=== PATIENT | female | born 1950 | race Caucasian/White ===

== ENCOUNTER 2016-11-01 10:38 | Observation (INO) | payer OTHER ==
--- NOTE | ~2016-11-01 | MR18 ---
[facility] A Service of [facility] & [facility] RADIOLOGY TEXT RESULTS PATIENT: SULAIMAN CAST LOCATION: [facility] 341-01 : 51 UNIT #: [id number] AGE: [address]: Devonte Chicas MD SEX: F ORDER DR: [id number] [facility] [address] [place], [place] [address] [id number] I MR#: [id number] #: [id number] NAME: SULAIMAN CAST. : 1950 SEX: F STUDY DATE/TIME: 11/01/2016 17:58 [facility] ROOM: [facility] STUDY DESCRIPTION: MR Brain Wo Contrast Attending Physician: Diana Quan M.D. Ordering Physician: Diana Quan M.D. Primary Care Physician: Dev Parker M.D. MRI CENTER REPORT This report is preliminary unless electronic signature is present. EXAM MRI of the brain without contrast. DATE OF EXAM Performed on 11/01/2016. CLINICAL HISTORY 66-year-old female with dizziness, and loss of balance, but no known injury. Patient has history of ovarian cancer. TECHNIQUE Sagittal and axial T1, axial T2, axial FLAIR, axial diffusion, axial gradient echo images were obtained through the region of the brain. FINDINGS There is no shift of the midline structures, mass effect or restricted diffusion present within the brain parenchyma. No hemorrhage or blood products is appreciated. No edema is seen. There are minimal foci of increased signal in the periventricular white matter. This is felt to be some chronic small vessel ischemic change. Midline structures are intact and no pituitary or pineal lesions are present. Paranasal sinuses and mastoid air cells are clear except in the posterior left ethmoid location where there is some opacification. This may represent sinusitis. No orbital lesions are seen. The vascular flow voids appear within normal limits. IMPRESSION 1. Sinusitis with no evidence of an acute infarct or restricted diffusion. 2. Minimal chronic ischemic change in the periventricular white matter. 3. No evidence of hemorrhage or mass effect. [facility] A Service of [facility] & [facility] RADIOLOGY TEXT RESULTS PATIENT: SULAIMAN CAST LOCATION: [facility] 341-01 : [birth year] UNIT #: [id number] AGE: [address]: Devonte Chicas MD SEX: F ORDER DR: Dictated by... Esa Craig M.D. THIS IS AN ELECTRONICALLY VERIFIED REPORT Esa Craig M.D. at 11/02/2016 5:42 PM MADHU/abby TD: 11/01/2016 23:07 JOB #: [id number] MRI CENTER REPORT COPY
--- NOTE | ~2016-11-01 | CT17 ---
[facility] A Service of [facility] & [facility] RADIOLOGY TEXT RESULTS PATIENT: SULAIMAN CAST LOCATION: [facility] 341-01 : 51 UNIT #: [id number] AGE: [address]: Diana Quan MD SEX: F ORDER DR: [id number] [facility] [address] [place], [place] [address] [id number] I MR#: [id number] Acc #: [id number] NAME: SULAIMAN CAST. : 1950 SEX: F STUDY DATE/TIME: 11/01/2016 13:43 UNIT: [address] ROOM: [facility] STUDY DESCRIPTION: CT Angio Head Attending Physician: Diana Quan M.D. Ordering Physician: Barb Blanchard M.D. Primary Care Physician: Dev Parker M.D. MEDICAL IMAGING REPORT This report is preliminary unless electronic signature is present EXAM CT angiogram of the head and neck vessels, 11/01/2016. HISTORY Dizziness with head movement, severe nausea starting at 08:05 today. Remote history of ovarian cancer. No trauma. COMMENT CT angiography of the head and neck vessels was performed during the intervenous administration of 100 mL of Isovue-370 with imaging acquired in the axial plane, followed by multiple reconstructed, reformatted images for the purpose of 3-D CT angiography of the head and neck vessels. There is a head CT comparison from 11/01/2016. CT ANGIOGRAM NECK: There are atherosclerotic vascular calcifications in the arch. There is a bovine origin of the left common carotid artery, and there is mild vascular calcifications of the origins of the great vessels, but no hemodynamically significant narrowing is suspected. Evaluation of the right carotid system shows mild calcified plaque at the right carotid bifurcation along its petrous portion and in the siphon, but by NASCET criteria, there does not appear to be hemodynamically significant narrowing. I would estimate 0% stenosis of the origin of the right internal carotid artery, perhaps mild stenosis in the petrous and supraclinoid portions. Evaluation of the left carotid system shows partially calcified plaque at the left carotid bifurcation. This is seen at the origin of the left internal carotid artery and at the origin of the left external carotid artery. Mild, if any, stenosis present by NASCET criteria. I would [facility] A Service of [facility] & [facility] RADIOLOGY TEXT RESULTS PATIENT: SULAIMAN CAST LOCATION: [facility] 341-01 : 51 UNIT #: [id number] AGE: [address]: Diana Quan MD SEX: F ORDER DR: estimate 0% to 10% stenosis. There is mild calcified plaque in the left carotid siphon, probably with only mild stenosis. Assessment of the right vertebral artery shows that the vessel is patent in the neck and intracranially. The vessel appears to be hypoplastic after the origin of the PICA. Unfortunately, the origin is not well seen. I cannot exclude some mild narrowing at the origin of the right vertebral artery. Evaluation of the left vertebral artery shows the vessel to be patent at its origin and in the neck and intracranially. In the neck, the vertebral system is fairly balanced. Evaluation of the intracranial circulation is mildly limited by technical factors. Intracranial images are grainy, related to limitations of the CT scanner. Allowing for this, the patient has an anterior dominant circulation with large bilateral posterior communicators and origin at the posterior cerebral artery distributions. No intracranial vascular cutoff is suspected. There is concern for some true stenosis at the distal vertebral arteries forming the basilar. Unfortunately, this imaging is grainy, but since this patient has a developmentally small posterior circulation and symptoms of dizziness, these findings could be real and hemodynamically significant stenosis in the distal vertebral arteries could result in episodes of dizziness/vertebrobasilar insufficiency. If this fits the clinical scenario and the patient is a candidate for intervention, she is probably best further assessed with a conventional angiogram. I believe the bilateral P1 vessels are either aplastic or extremely hypoplastic. No anterior communicator is seen. The dural venous sinuses are patent. There is probably a small fenestration at the origin of the right PICA vessel incidentally noted. No definite intracranial aneurysm, allowing for the technical limitation of the study. There is opacification of the left posterior ethmoid air cells. Some asymmetry in the airway is noted. The left piriform sinus is coapted/effaced, and there is some asymmetry of the airway at the level of the tongue base, with more soft tissue fullness to the right side. These findings are very nonspecific and best assessed further with direct visualization to exclude mucosal pathology. There are degenerative changes in the spine. IMPRESSION 1. There is an anterior dominant circulation with origin to the bilateral posterior cerebral artery distribution and the bilateral P1 vessels are either aplastic or extremely hypoplastic. The posterior circulation is developmentally small, and I am concerned for superimposed disease of the distal vertebral arteries. There may be hemodynamically significant relatively high-grade stenosis just prior to forming the basilar artery, and this possibility places the patient at risk for episodes of vertebrobasilar insufficiency. Given the patient's clinical procedure, including dizziness, consider correlation with a conventional angiogram for further assessment, [facility] A Service of [facility] RADIOLOGY TEXT RESULTS PATIENT: SULAIMAN CAST LOCATION: [place] [address]- : 51 UNIT #: [id number] AGE: [address]: Diana Quan MD SEX: F ORDER DR: particularly if the patient is a candidate for intervention. If there is clinical concern for acute CVA and the patient is a candidate, consider correlation with an MRI of the brain. 2. There is some atherosclerotic disease at the carotid bifurcations. By NASCET criteria, no hemodynamically significant narrowing is suspected. I would estimate about 0% diameter stenosis on the right and 0% to 10% diameter stenosis on the left. Both vertebral arteries are patent in the neck. 3. On the source images, there is some mucosal asymmetry in the soft tissues of the neck. There is fullness at the right-sided tongue base asymmetrically, and there is asymmetric effacement of or coaptation of left-sided piriform sinus. This is very nonspecific and best assessed further with direct visualization by Ear, Nose, and Throat. 4. Opacification of the left posterior ethmoid air cells. STAT * RESULT Dictated by... Sydney Reyes M.D. THIS IS AN ELECTRONICALLY VERIFIED REPORT Sydney Reyes M.D. at 11/02/2016 7:42 AM MARCO ANTONIO/hailee TD: 11/01/2016 14:54 JOB #: [id number] MEDICAL IMAGING REPORT COPY
--- NOTE | ~2016-11-01 | CT71 ---
[facility] A Service of [facility] & [facility] RADIOLOGY TEXT RESULTS PATIENT: SULAIMAN CAST LOCATION: [facility] 341-01 : 52 UNIT #: [id number] AGE: [address]: Devonte Chicas MD SEX: F ORDER DR: [id number] [facility] [address] [place], [place] [address] [id number] E MR#: [id number] Acc #: [id number] NAME: SULAIMAN CAST. : 1950 SEX: F STUDY DATE/TIME: 11/01/2016 13:22 UNIT: [facility] ROOM: STUDY DESCRIPTION: CT Head Wo Contrast Attending Physician: Barb Blanchard M.D. Ordering Physician: Barb Blanchard M.D. Primary Care Physician: Dev Parker M.D. MEDICAL IMAGING REPORT This report is preliminary unless electronic signature is present EXAM CT head, 11/01/2016. HISTORY Dizziness with head movement. Severe nausea started [address] head performed from skull base through vertex without intravenous contrast. This CT exam was performed with one or more of the following radiation dose reduction techniques: automatic exposure control, adjustment of mA and/or kV according to patient size, and iterative reconstruction. COMPARISON STUDIES No prior CTs of head for comparison at this institution. FINDINGS The brain stem is unremarkable. The cerebellum and cerebral hemispheres show normal cotter matter-white matter differentiation. No hemorrhage. No evidence of acute cortical ischemia. Midline structures are nondisplaced. Basal ganglia calcifications, but no acute-appearing basal ganglia abnormality. There are small subcentimeter foci of hypodensity at the bilateral inferior lentiform nuclei favored to represent either small dilated perivascular spaces or chronic lacunar infarcts. The ventricles, cisterns, and sulci show mild generalized enlargement, consistent with mild generalized atrophy. Minimal periventricular and deep white matter tract probable sequelae of chronic microvascular ischemia. Cavernous carotid arterial calcifications. No intraaxial or extraaxial mass effect or abnormal intracranial fluid collection. Intraorbital soft tissues unremarkable in visualized extent. The visualized paranasal sinuses and mastoid air cells are clear. [facility] A Service of [facility] & [facility] RADIOLOGY TEXT RESULTS PATIENT: SULAIMAN CAST LOCATION: [facility] 341-01 : 52 UNIT #: [id number] AGE: [address]: Devonte Chicas MD SEX: F ORDER DR: IMPRESSION 1. No acute abnormality seen in the brain. If the patient has ongoing neurologic symptoms, consider follow-up imaging, preferably with MRI, if the patient is a candidate. 2. Mild atrophic change. 3. Small subcentimeter foci of hypodensity, bilateral inferior lentiform nuclei most consistent with either dilated perivascular spaces or very small chronic lacunar infarcts. 4. Vascular calcifications. 5. Minimal periventricular and deep white matter tract changes, likely reflecting sequelae of chronic microvascular ischemia. Dictated by... Aj Luz M.D. THIS IS AN ELECTRONICALLY VERIFIED REPORT Aj Luz M.D. at 11/03/2016 8:22 PM CLAUDIO/hailee TD: 11/01/2016 16:21 JOB #: [id number] MEDICAL IMAGING REPORT COPY
--- NOTE | ~2016-11-01 | HP ---
Unit #: [id number] #: [id number] Patient: SULAIMAN CAST [id number] [address] [place], [place] [address] [id number] MR#: [id number] NAME: SULAIMAN CAST ROOM: Age: 66 Sex: F Admission Date: 11/01/2016 : 1950 Attending Physician: Barb Blanchard M.D. Primary Care Physician: Dev Parker M.D. HISTORY AND PHYSICAL CHIEF COMPLAINT Dizzy, leaning toward right. HISTORY OF PRESENT ILLNESS The patient is a 66-year-old female with a past medical history of hyperlipidemia, nephrolithiasis, diabetes, and ovarian cancer, who presented to the emergency department for evaluation of the above. The patient states that she was in her usual state of health until the evening prior to admission when she was going to bed around 11:15 and felt abnormal. She states that she felt like the "bed had flipped." She states that it was fairly sudden onset. She states that she was quite tired because she had spent the night before in the emergency department with a family member. She went to sleep. This morning the symptoms persisted. She stated that she felt like she was "leaning to the right." She states that she felt very unsteady and was having to hold onto noe. She was recently treated by her primary care physician for acute sinusitis. She received a Medrol Dosepak, as well as amoxicillin. She states that she had one additional dose. The symptoms have essentially resolved. She denies any fever and no chest pain. She states that her appetite has been good. No vomiting or diarrhea. In the emergency department, a CT of the head was done and showed nothing acute. CT angiogram showed developmentally small posterior circulation with concern for possible high-grade stenosis prior to the formation of the basilar artery. She was given meclizine and Zofran in the emergency department. She states that she feels much better. She is being admitted to [facility] for evaluation and further treatment. PAST MEDICAL HISTORY 1. Admission to [facility] in 2006 for nephrolithiasis. 2. Diabetes. 3. Hyperlipidemia. 4. History of ovarian cancer, status post total abdominal hysterectomy and chemotherapy in 1992. PAST SURGICAL HISTORY 1. Total abdominal hysterectomy. 2. Surgery for tubal . 3. section. 4. Appendectomy. 5. Hernia repair. SOCIAL HISTORY Unit #: [id number] #: [id number] Patient: SULAIMAN CAST The patient lives with her . There is no tobacco or alcohol use. She typically walks without assistance. 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 FAMILY HISTORY Notable for her dad having diabetes and congestive heart failure. Her mother had cirrhosis secondary to alcoholism. ALLERGIES COMPAZINE. HOME MEDICATIONS 1. Janumet. 2. Amaryl. 3. Invokana. 4. Lipitor. 5. Trulicity. REVIEW OF SYSTEMS A complete review of systems is negative except as indicated in the History of Present Illness. PHYSICAL EXAMINATION VITAL SIGNS: Temperature is 97.8, pulse 94, respirations 16, blood pressure 151/71, and oxygen saturation is 100% on room air. GENERAL: Patient is a female who is awake, alert, and in no acute distress. HEENT: Head is atraumatic. Mucous membranes are moist. NECK: Supple. Trachea is midline. CARDIOVASCULAR: Regular rate and rhythm. LUNGS: Clear to auscultation bilaterally with no increased work of breathing. ABDOMEN: Soft and nontender with bowel sounds present in all four quadrants. EXTREMITIES: Nontender with no pedal edema. NEUROLOGIC: Patient is awake and alert. She follows commands. She does have horizontal nystagmus. [id number] is intact. Rapid alternating movements are intact. Gait was not assessed. PSYCHIATRIC: Mood and affect are normal. Patient is cooperative. SKIN: Skin of examined areas is warm and dry. DIAGNOSTIC STUDIES LABORATORY: Troponin is less than 0.05. Complete blood count is completely normal. Comprehensive metabolic panel notable for glucose of 121. IMAGING: CT of the head shows nothing acute. CT angiogram of the head and neck shows developmentally small posterior circulation with concern for possible high-grade stenosis prior to formation of the basilar artery. Conventional angiogram and MRI are recommended by the radiologist. Additionally, fullness of the right tongue base is noted. CARDIOLOGY: EKG shows normal sinus rhythm with a rate of 92 beats per minute. ASSESSMENT The patient is a 66-year-old female with: 1. Ataxia. CT angiogram showed developmentally small posterior Unit #: [id number] #: [id number] Patient: SULAIMAN CAST circulation and possible high-grade stenosis prior to the formation of the basilar artery. Findings are concerning for possible vertebrobasilar insufficiency. 2. Hyperlipidemia. 3. History of nephrolithiasis. 4. Diabetes. 5. History of ovarian cancer. 6. Tongue fullness. PLAN 1. Admit to intermediate level for observation. 2. Healthy heart, consistent carbohydrate diet if passes bedside swallow. 3. Check MRI of the brain without contrast. 4. Consult Dr. Maldonado regarding ataxia. 5. Low-dose sliding scale insulin with Accu-Cheks. 6. Aspirin if not already given. 7. The patient will need to follow up with ENT as an outpatient regarding tongue fullness. 8. During the course of this dictation, I discussed this patient with Dr. Maldonado, who recommends a stat MRI. If the patient is having an acute stroke, she will need to be transferred to [facility]. If there is no acute abnormality on the MRI, she will stay for observation. 1. Dictated by Diana Quan M.D. EVELIN/pallavi TD: 11/01/2016 17:23 JOB #: [id number] HISTORY AND PHYSICAL X Diana Quan MD HISTORY AND PHYSICAL
--- NOTE | ~2016-11-01 | EKG ---
PATIENT: SULAIMAN CAST UNIT #: [id number] Ventricular Rate: 92 BPM Atrial Rate: 92 BPM P-R Interval: 178 ms QRS Duration: 84 ms Q-T Interval: 346 ms QTC Calculation(Bezet): 427 ms P Whitehouse: 56 degrees Calculated R Whitehouse: 60 degrees Calculated T Whitehouse: 51 degrees Diagnosis Line: Normal sinus rhythm Diagnosis Line: T wave abnormality, consider lateral ischemia Diagnosis Line: Abnormal ECG Diagnosis Line: No previous ECGs available Diagnosis Line: Confirmed by CHIQUITA WOOTEN MD ([id number]) on 11/01/2016 Diagnosis Line: 6:25:54 PM INTERPRETING MD: SUGAR POLLACK
--- NOTE | ~2016-11-01 | DS ---
Unit #: [id number] #: [id number] Patient: SULAIMAN CAST [id number] [address] [place], [place] [address] [id number] I MR#: [id number] NAME: SULAIMAN CAST. ROOM: 341 Age: 66 Sex: F Admission Date: 11/01/2016 : 1950 Discharge Date: 11/02/2016 Attending Physician: Devonte Chicas M.D. Primary Care Physician: Dev Parker M.D. DISCHARGE SUMMARY DISCHARGE DIAGNOSES 1. Ataxia secondary to benign paroxysmal positional vertigo. Parisa maneuver improved her symptoms. 2. Hyperlipidemia. 3. History of nephrolithiasis. 4. Type 2 diabetes. 5. History of ovarian cancer. 6. Sensation of tongue fullness. ENGINEERING LECTURER Dr. Maldonado of neurology. PROCEDURES None. DIAGNOSTIC STUDIES IMAGING: CT of the head without contrast on 11/01/16. Impression - No acute abnormality seen in the brain. If the patient has ongoing neurologic symptoms, refer to MRI. Mild atrophic change. Small subcentimeter foci of hypodensity, bilateral inferior lentiform nuclei, most consistent with either dilated perivascular spaces or very small chronic lacunar infarcts. Vascular calcifications. Minimal periventricular and deep white matter tract changes, likely reflecting sequelae of chronic microvascular ischemia. Head CT and neck. Impression - There is an anterior dominant circulation with origin to the bilateral posterior cerebral artery distribution, and the bilateral P1 vessels are either aplastic or extremely hypoplastic. The posterior circulation is developmentally small, and I am concerned for superimposed disease of the distal vertebral arteries. There may be hemodynamically significant relatively high-grade stenosis just prior to forming the basilar artery, and this possibility places the patient at risk for episodes of vertebrobasilar insufficiency. Given the patient's clinical procedure, including dizziness, consider correlation with a conventional angiogram for further assessment. There is some atherosclerotic disease at the carotid bifurcations. By NASCET criteria, no hemodynamically significant narrowing is suspected. I would estimate about 0% diameter stenosis on the right and 0% to 10% diameter stenosis on the left. Both vertebral arteries are patent in the neck. On the source images, there is some mucosal asymmetry in the soft tissues of the neck. There is fullness at the right-sided tongue base asymmetrically, and there is asymmetric effacement of or coaptation of left-sided piriform sinus. This is very nonspecific and best assessed further with direct visualization by Ear, Nose, and Throat. Opacification of the left Unit #: [id number] #: [id number] Patient: SULAIMAN CAST posterior ethmoid air cells. MRI of the brain without contrast. Impression - Sinusitis with no evidence of an acute infarct or restricted diffusion. Minimal chronic ischemic change in the periventricular white matter. No evidence of hemorrhage or mass effect. LABS ON THE DAY OF DISCHARGE: Glucose 145, BUN 16, creatinine 0.9, sodium 136, potassium 4.6, chloride 108, CO2 25, calcium 8.8, total protein 6.9, albumin 4, total bilirubin 0.7, AST 18, ALT 27, alkaline phosphatase 46. CBC - WBC 8.7, RBC 4.51, hemoglobin 13.9, hematocrit 40.6, MCV 89.9, MCH 30.8, MCHC 34.3, RDW 13.7, platelets 192, MPV 8.1. No microbiology culture was obtained. HOSPITAL COURSE The patient is a pleasant 66-year-old female with past medical history of hyperlipidemia, nephrolithiasis, type 2 diabetes and ovarian cancer. She presented to the emergency department due to symptoms of dizziness and leaning toward the right. The patient stated that she was in her usual state of health until the evening prior to admission when she was going to bed around 11:15 and felt "abnormal." She stated that she felt like the "bed had flipped." She stated that it was fairly sudden in onset. She stated that she was quite tired because she had spent the night before in the emergency department with a family member. She went to sleep. On the morning of admission the symptoms persisted. She stated that she felt like she was "leaning to the right." She stated that she felt very unsteady and was having to hold onto noe. She was treated by her primary care physician for acute sinusitis. She was given a Medrol Dosepak and amoxicillin for 10 days. She stated that she had one additional dose. The symptoms have essentially resolved. She denied any fever or chest pain. She stated that her appetite has been good. No vomiting or diarrhea. In the emergency department, a CT of the head was done and showed nothing acute. CT angiogram showed developmentally small posterior circulation with concern for possible high-grade stenosis prior to the formation of the basilar artery. She was given meclizine and Zofran in the emergency department. She stated that she felt better after this. She was admitted for further evaluation. MRI was done as detailed above. Dr. Maldonado of neurology has seen the patient and felt that this was benign positional vertigo. Occupational therapy has seen the patient and performed Parisa maneuver. The patient tells me that she feels better after this. Neurology recommendation at this time is for the patient to start on a full dose aspirin 325 mg orally daily and thought that the patient was stable to be discharged home. She can follow up with [facility] stroke team, see Dr. Simms or Dr. Hamilton on . We are giving the patient a copy of her CTA and MRI to have with her. For the abnormality seen on the CT of the head, she can see an gas scrubber operator outpatient. She felt stable at this time and had no concern. I am discharging the patient in stable condition. DISCHARGE DISPOSITION Discharge to home. DISCHARGE CONDITION Stable. Unit #: [id number] #: [id number] Patient: SULAIMAN CAST ACTIVITY Resume activity as prior to hospitalization. DISCHARGE MEDICINES 1. Continue with the patient's Medrol Dosepak. 2. Janumet with metformin 50/1,000 mg 1 tablet orally b.i.d. 3. Lipitor 40 mg orally daily. 4. Trulicity 1.5 subcutaneously once weekly. 5. Aspirin 325 mg orally daily. 6. Invokana 300 mg orally daily. 7. Amaryl 4 mg orally b.i.d. 8. I will give her a prescription for meclizine 25 mg q.8 hours as needed for the dizzy sensation. Dictated by... Raciel Bourgeois PA-C for Sienna Anderson/master TD: 11/04/2016 15:35 JOB #: [id number] DISCHARGE SUMMARY X X DISCHARGE SUMMARY
--- NOTE | ~2016-11-01 | CO ---
Unit #: [id number] #: [id number] Patient: SULAIMAN CAST [id number] [facility]. [place], [place] [address] [id number] I MR#: [id number] NAME: SULAIMAN CAST ROOM: 341 Age: 66 Sex: F Admission Date: 11/01/2016 : 1950 Attending Physician: Devonte Chicas M.D. Primary Care Physician: Dev Parker M.D. Consultation Date: 11/02/2016 CONSULTATION REPORT PRIMARY CARE PHYSICIAN Dr. Dev Parker. REASON FOR CONSULTATION Dizziness. PATIENT IDENTIFICATION This is a 66-year-old, right-handed, white female, who was evaluated in room 341 at [facility]. SOURCE OF INFORMATION The patient, her , evaluation done by Dr. Quan and my personal discussion with her. PROBLEM LIST 1. Dizziness when leaning towards the right side. 2. Prior history of nephrolithiasis. 3. Diabetes. 4. Hyperlipidemia. 5. History of ovarian cancer. 6. Status post total abdominal hysterectomy. 7. Surgery for tubal . 8. . 9. Appendectomy. 10. Hernia repair. HISTORY OF PRESENT ILLNESS This is a very pleasant 66-year-old, right-handed, white female, who has been pretty healthy otherwise except for the problems as discussed above, but lately has reported no major issues. This patient lately had developed some sinusitis and she received Medrol Dosepak as well as amoxicillin. The patient says that she was in her usual state of health other than the treatment above until the evening prior to admission when she was going to bed around 11:15 p.m. and felt abnormal. She felt like the bed had flipped at the moment she moved and it was with the head movement and then the whole day she thought that she was listing towards the right side. So, she came in here and was evaluated. She had a head CT done, which was unremarkable. She ended up with CTA of the head and neck and it showed that there is anterior dominant circulation with origin and bilateral posterior cerebral artery distribution and bilateral P1 vessels are either aplastic or extremely hypoplastic, and also there was a possibility of superimposed disease of distal vertebral arteries, question about hemodynamically significant and high-grade stenosis just prior to the formation of the basilar artery. So, Dr. Quan discussed Unit #: [id number] #: [id number] Patient: SULAIMAN CAST that with me and we decided to first do an MRI to make sure there is nothing going on in the posterior circulation like infarcts or other signs of ischemia and if there was such a thing and the patient has other signs and symptoms, then we would definitely, not just do an angio here and exposure to contrast material just for diagnostic purpose, we will rather transfer to [facility] and have them do a conventional angio and intervention if needed. With the posterior circulation isolated, there is significant question though as far as intervention is concerned. She is not taking aspirin. If the MRI was okay and she was given meclizine and she has dramatically improved and there was nothing anytime suggesting other type of dizziness, nystagmus, numbness, tingling, other ataxia and she is doing great right now and she wants to go home. MRI was reviewed. Other tests were reviewed. No prior TIAs. No passing out episode. No headaches. PAST MEDICAL HISTORY As discussed above. PAST SURGICAL HISTORY As discussed above. ALLERGIES Compazine. HOME MEDICATIONS Janumet, Amaryl, Invokana, Lipitor, Trulicity. FAMILY HISTORY Dad had diabetes and congestive heart failure. Mother had cirrhosis secondary to alcoholism. SOCIAL HISTORY The patient is , lives with her . There is no tobacco, alcohol or drug use. 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 REVIEW OF SYSTEMS CONSTITUTIONAL: The patient denies any recent weight issues, fever, chills, rigor, or sweats. HEENT: No headaches. No double vision, earache, runny nose, or sore throat. CARDIOVASCULAR: No chest pain, clubbing, cyanosis, orthopnea, or palpitation. PULMONARY: No shortness of air, cough, or expectoration. GI: No nausea, vomiting, diarrhea, or constipation. GENITOURINARY: No genitourinary symptoms. EXTREMITIES: No extremity problem otherwise. BACK: No back problem. PSYCHIATRIC: No psychotic issue. NEUROLOGIC: Dizziness. No other hematologic, dermatologic, or endocrine problems known to me. Unit #: [id number] #: [id number] Patient: SULAIMAN CAST She is diabetic though. PHYSICAL EXAMINATION VITAL SIGNS: Temperature is 98.3, pulse 101, respirations 18, blood pressure 129/77, O2 sats were 98% to 99%, weight of 183 pounds, BMI was 31. NEUROLOGICAL: The patient is awake. She is alert. She is oriented. She can name. She can follow commands. No right/left confusion. No finger agnosia. Cranial examination demonstrates full reddy of vision. Eye movements are conjugate. I did not see any ptosis. I did not see any nystagmus. Extraocular movements are intact. Sensation on the face and scalp are normal. Strength of muscles of facial expression normal. Hearing seemed to be intact bilaterally. Tongue was midline. Uvula was midline. Palate elevation was normal. Head turning and shoulder shrugs were unremarkable. Motor examination demonstrated normal bulk, tone. Strength was essentially 5/5. Sensory examination intact for soft touch and pain sensation. No extinction was seen. Romberg was negative. Gait examination was fine with normal base stride and turns. Reflexes; the only reflex I could get was 1/4 in the left biceps. Toes are downgoing. Coordination was normal for kdsxfr-ix-azva-to-finger. Hallpike was positive on the right side. DIAGNOSTIC STUDIES LABORATORY RESULTS: Reviewed personally. Random glucose was 121 to 142. White count was 8.7, H and H of 13.9 and 40.6, platelet count was 192. Urinalysis was unremarkable. IMAGING STUDIES: Reviewed personally. IMPRESSION This is a very interesting 66-year-old female with dizziness and positive Hallpike. This may be benign paroxysmal positional vertigo. There is nothing really suggesting vertebrobasilar insufficiency. This is not a stroke. This is not a transient ischemic attack. I had a very detailed discussion with her and I told her that my recommendation is that she follows up with [facility] soon, but electively unless she has more symptoms. I would recommend if there is any testing done at the [facility] or other places where they can be intervention done, again really doubtful, that it was a vertebrobasilar insufficiency. She is doing very well. I would do recommend aspirin and meclizine as needed. She already has used Medrol Dosepak for sinusitis. She already is familiar with [facility] as her daughter used to go there. So, I explained to them. I explained to them TIA risks Unit #: [id number] #: [id number] Patient: SULAIMAN CAST because of her age and comorbidities anyway. She may be discharged to follow up with her primary care physician and [facility], Dr. Hamilton or Dr. Simms or others. Call me for any other questions, issues, or concerns. Dictated by... Sienna Eckert/reid TD: 11/03/2016 00:38 JOB #: [id number] CONSULTATION REPORT X Israel Maldonado MD X CONSULTATION REPORT
--- NOTE | ~2016-11-01 | CT23 ---
[facility] A Service of [facility] & [facility] / [facility] RADIOLOGY TEXT RESULTS PATIENT: SULAIMAN CAST LOCATION: [facility] 341-01 : [birth year] UNIT #: [id number] AGE: [address]: Diana Quan MD SEX: F ORDER DR: [id number] [facility] [address] [facility]. [place], [place] [address] [id number] I MR#: [id number] Acc #: [id number] NAME: SULAIMAN CAST : 1950 SEX: F STUDY DATE/TIME: 11/01/2016 13:43 UNIT: [address] ROOM: [facility] STUDY DESCRIPTION: CT Angio Neck Attending Physician: Diana Quan M.D. Ordering Physician: Barb Blanchard M.D. Primary Care Physician: Dev Parker M.D. MEDICAL IMAGING REPORT This report is preliminary unless electronic signature is present EXAM CT-A neck, 11/01/2016. FINDINGS Please see CT-A head for results. Dictated by... Sydney Reyes M.D. THIS IS AN ELECTRONICALLY VERIFIED REPORT Sydney Reyes M.D. at 11/02/2016 7:42 AM Jose TD: 11/01/2016 15:00 JOB #: [id number] MEDICAL IMAGING REPORT COPY
[~2016-11-01 10:38] MED LIST: AMARYL; CRESTOR10 MG PO; JANUMET XR 50-1 EAC1 PO
[2016-11-01 11:38] LABS: BASOPHIL# 0.1 X10e3 (0-0.3); BASOPHIL% 0.6 % (0-2.5); EOSINOPHIL# 0.1 X10e3 (0-0.7); EOSINOPHIL% 0.7 % (0.0-7.0); HEMATOCRIT 39.8 % (35.0-45.0); HEMOGLOBIN 13.8 gm/dL (12.0-16.0); LYMPHOCYTE# 1.2 X10e3 (1.0-3.5); LYMPHOCYTE% 13.3 % (17.0-45.0); MEAN CELL VOLUME 89.2 FL (83-96); MEAN CORPUSCULAR HEMOGLOBIN 30.9 PG (28-34); MEAN CORPUSCULAR HGB CONC 34.6 g/dL (30-36); MEAN PLATELET VOLUME 7.7 FL (6.5-11.5); MONOCYTE# 0.6 X10e3 (0-1.0); MONOCYTE% 7.1 % (3.0-12.0); NEUTROPHIL# 7.1 X10e3 (1.5-7.1); NEUTROPHIL% 78.3 % (40-75); PLATELET COUNT 176 X10e3 (140-420); RED BLOOD COUNT 4.47 X10e (3.90-5.30); RED CELL DISTRIBUTION WIDTH 13.6 % (11.0-15.5); WHITE BLOOD COUNT 9.1 X10e3 (4.0-10.5)
[2016-11-01 11:42] LABS: DIFF IND NO
[2016-11-01 11:42] LABS: POC - CKMB 1.3 ng/mL (0.0-7.9); POC - TROPONIN <0.05 ng/mL (<=0.05)
[2016-11-01 12:20] LABS: ALBUMIN SERUM 4.2 g/dL (3.5-5.0); BILIRUBIN, DIRECT 0.1 mg/dL (0.0-0.2); BILIRUBIN,INDIRECT 0.7 mg/dL (0.0-0.9); BILIRUBIN,TOTAL 0.8 mg/dL (0.2-2.0); CALCIUM SERUM 9.2 mg/dL (8.4-10.2); GLOM FILT RATE Estimated 59.1 mL/min (>60); POTASSIUM 3.9 mmol/L (3.5-5.1); PROTEIN TOTAL SERUM 7.2 g/dL (6.0-8.3)
[2016-11-01] MEDS ORDERED: JANUMET XR 50-1 EAC1 PO (15:25)
[2016-11-01] MEDS ORDERED: AMARYL PO (15:25)
[2016-11-01] MEDS ORDERED: LIPITOR40 MG PO (15:26)
[2016-11-01] MEDS ORDERED: INVOKANA300 MG PO (15:26)
[2016-11-01] MEDS ORDERED: TRULICITY1.5 MG/0.5 SUBQ (15:27)
[2016-11-02 08:03] LABS: BASOPHIL% 0.1 % (0-2.5); EOSINOPHIL% 0.1 % (0.0-7.0); HEMATOCRIT 40.6 % (35.0-45.0); HEMOGLOBIN 13.9 gm/dL (12.0-16.0); LYMPHOCYTE# 0.8 X10e3 (1.0-3.5); MEAN CELL VOLUME 89.9 FL (83-96); MEAN CORPUSCULAR HEMOGLOBIN 30.8 PG (28-34); MEAN CORPUSCULAR HGB CONC 34.3 g/dL (30-36); MEAN PLATELET VOLUME 8.1 FL (6.5-11.5); MONOCYTE# 0.3 X10e3 (0-1.0); MONOCYTE% 3.2 % (3.0-12.0); NEUTROPHIL# 7.6 X10e3 (1.5-7.1); NEUTROPHIL% 87.6 % (40-75); PLATELET COUNT 192 X10e3 (140-420); RED BLOOD COUNT 4.51 X10e (3.90-5.30); RED CELL DISTRIBUTION WIDTH 13.7 % (11.0-15.5); WHITE BLOOD COUNT 8.7 X10e3 (4.0-10.5)
[2016-11-02 08:10] LABS: DIFF IND NO
[2016-11-02 08:15] LABS: PROTHROMBIN TIME (PATIENT) 10.8 SECONDS (9.6-11.5)
[2016-11-02 08:44] LABS: ALKALINE PHOSPHATASE 46 U/L (32-92); ALT (SGPT) 27 U/L (10-40); AST (SGOT) 18 U/L (10-42); BILIRUBIN,TOTAL 0.7 mg/dL (0.2-2.0); BLOOD UREA NITROGEN 16 mg/dL (9-23); BUN/CREATININE RATIO 17.77; CALCIUM SERUM 8.8 mg/dL (8.4-10.2); CARBON DIOXIDE 25 mmol/L (22-31); CHLORIDE 108 mmol/L (100-111); CREATININE SERUM 0.9 mg/dL (0.6-1.4); GLOM FILT RATE Estimated ABOVE60 mL/min (>60); GLUCOSE FASTING 142 mg/dL (70-110); POTASSIUM 4.6 mmol/L (3.5-5.1); PROTEIN TOTAL SERUM 6.9 g/dL (6.0-8.3); SODIUM 136 mmol/L (135-145)
[2016-11-02] MEDS ORDERED: COATED ASPIRIN325 M1 PO (15:11)
[2016-11-02] MEDS ORDERED: MOTION RELIEF25 MG PO (15:12)
== END 2016-11-02 16:19 | disposition home or self-care (01) ==
LOC: CED 10:38 → C3A PCU 17:00
PROVIDERS: Family Medicine; Student in an Organized Health Care Education/Training Program
DX: R27.0 Ataxia, unspecified (principal); H81.10 Benign paroxysmal vertigo, unspecified ear; G93.89 Other specified disorders of brain; Z79.899 Other long term (current) drug therapy; I65.29 Occlusion and stenosis of unspecified carotid artery; M79.89 Other specified soft tissue disorders; J34.9 Unspecified disorder of nose and nasal sinuses; G31.89 Other specified degenerative diseases of nervous system; J32.9 Chronic sinusitis, unspecified; E78.5 Hyperlipidemia, unspecified; E11.9 Type 2 diabetes mellitus without complications; Z79.84 Long term (current) use of oral hypoglycemic drugs; Z90.710 Acquired absence of both cervix and uterus; Z85.43 Personal history of malignant neoplasm of ovary; Z87.442 Personal history of urinary calculi; Z82.49 Family history of ischemic heart disease and other diseases of the circulatory system; Z81.1 Family history of alcohol abuse and dependence; Z83.3 Family history of diabetes mellitus
CPT/HCPCS: 36415; 70450; 70496; 70498; 70551; 80048; 80053; 80076; 82553; 82947; 84484; 85025; 85610; 93005; 96360; 96361; 97165; 97530; 99285; G0378; G8987-GO; G8988-GO; G8989-GO; Q9967